=== PATIENT | female | born 1995 ===

== ENCOUNTER 2017-07-07 17:15 | Emergency (ER) | payer OTHER ==
[2017-07-07 17:27] VITALS: BP 128/67; PULSE 77; RESP 16; TEMP 97.6; O2SAT 100
--- NOTE | 2017-07-07 18:48 | ED PDOC ---
HPI: Skin/Bite Injury Time Seen by Provider: 07/07/17 17:48 Chief Complaint (Nursing): Abnormal Skin Integrity Chief Complaint (Provider): Skin rash History Per: Patient History/Exam Limitations: no limitations Onset/Duration Of Symptoms: Days Current Symptoms Are (Timing): Still Present Additional History Per: Patient Additional Complaint(s): 21yo female, presents to the ED for evaluation of pruritic rash, present on her abdomen and back since yesterday but worsening today. Patient denies any new exposure to linens, lotions, soaps. She also denies any fever, chills. She offers no other medical complaints. Past Medical History Reviewed: Historical Data, Nursing Documentation, Vital Signs Vital Signs: Last Vital Signs Temp 97.6 F 07/07/17 17:25 Pulse 77 07/07/17 17:25 Resp 16 07/07/17 17:25 BP 128/67 07/07/17 17:25 Pulse Ox 100 07/07/17 17:25 - Medical History PMH: No Chronic Diseases - Surgical History Surgical History: No Surg Hx - Family History Family History: States: No Known Family Hx - Home Medications Home Medications: Ambulatory Orders Medication Instructions Recorded predniSONE [predniSONE Tab] 20 mg PO DAILY #12 tab 07/07/17 - Allergies Allergies/Adverse Reactions: Allergies Allergy/AdvReac Type Severity Reaction Status Date / Time No Known Allergies Allergy Verified 07/07/17 17:25 Review of Systems ROS Statement: Except As Marked, All Systems Reviewed And Found Negative Constitutional: Negative for: Fever, Chills Skin: Positive for: Rash (abdomen and back) Physical Exam - Reviewed Nursing Documentation Reviewed: Yes Vital Signs Reviewed: Yes - Physical Exam Appears: Positive for: Non-toxic, No Acute Distress Skin: Positive for: Rash (crusted bumps noted to abdomen, trunk and one lesion noted to right forearm) Eye Exam: Positive for: Normal appearance Cardiovascular/Chest: Positive for: Regular Rate, Rhythm Respiratory: Negative for: Respiratory Distress - ECG O2 Sat by Pulse Oximetry: 100 (RA) Pulse Ox Interpretation: Normal Medical Decision Making Medical Decision Making: Time: 1754 Impression: Pruritic rash Plan: Patient stable for discharge home; given prescriptions for Prednisone. Patient informed to follow up with PCP. Scribe Attestation: Documented by Ashleigh Shaw, acting as a scribe for Teresa Lowe PA-C Provider Scribe Attestation: All medical record entries made by the Scribe were at my direction and personally dictated by me. I have reviewed the chart and agree that the record accurately reflects my personal performance of the history, physical exam, medical decision making, and the department course for this patient. I have also personally directed, reviewed, and agree with the discharge instructions and disposition. Disposition - Clinical Impression Clinical Impression: Rash - Disposition Disposition: Routine/Home Disposition Time: 18:51 Condition: STABLE Prescriptions: predniSONE [predniSONE Tab] 20 mg PO DAILY #12 tab Instructions: Acute Rash (ED) Forms: [employer] (E[place]an), [facility] ED School/Work Excuse
== END 2017-07-07 19:04 | disposition home or self-care (01) ==
LOC: H.ER 17:15
DX: R21 Rash and other nonspecific skin eruption (principal)